=== PATIENT | male | born 2000 | race Caucasian/White ===

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

== ENCOUNTER 2018-04-21 07:17 | Day surgery (SDC) | payer OTHER ==
[2018-04-12 15:04] VITALS: BMI 20.5
[~2018-04-21 07:17] MED LIST: DEXAMETHASONE SOD PHOSPHATE 4 MG/ML 1 ML VIAL IV ONE; FAMOTIDINE 20 MG/2 ML VIAL IV ONE; HYDROmorphone 0.5 MG/0.5 ML SYRINGE IVP PRN; LACTATED RINGERS 1,000 ML IV SCH; MELOXICAM 7.5 MG TAB PO ONE; ONDANSETRON 4 MG/2 ML VIAL IVP ONE; ONDANSETRON 4 MG/2 ML VIAL IVP PRN; Pre Op ABX Message 1 EACH MISC MISCELLANE ONE; fentaNYL (PF) 50 MCG/ML 2 ML AMP IV PRN
[2018-04-21] MEDS ORDERED: LIDOCAINE 1%-EPI 1:100,000 20 ML VIAL SQ ONE ×2 (07:57→08:23)
[2018-04-21] MEDS ORDERED: BUPIVACAINE (PF) 0.5% 30 ML VIAL SQ ONE ×2 (07:57→08:23)
--- NOTE | 2018-04-21 08:02 | P.OP ---
Date of Procedure: 04/21/18 Preoperative Diagnosis: Ankyloglossia Postoperative Diagnosis: same Procedure(s) Performed: Frenuloplasty. z-plasty Anesthesia: MAC Surgeon: Mitchell Bailey Estimated Blood Loss (ml): 0 Pathology: none sent Condition: stable Disposition: PACU Indications for Procedure: Patient is having difficulty latching onto the mother's breast. Patient was noted have severe ankyloglossia and surgical correction was recommended. All risks, benefits, and alternative therapies were discussed. Consent was obtained and all questions were answered. Operative Findings: Severe ankyloglossia Description of Procedure: This patient was taken to the operative room and placed in the supine position. This patient underwent a masked inhalation anesthetic in the mouth was opened and the tongue was lifted upward. With use of a concept cautery i.e. Accu-Temp heat cautery the frenulum was resected (45 degree flaps developed and transposed) and a z-plasty was performed and closed with rapid vicryl. Excellent results were obtained. Tongue mobility was markedly improved.
[2018-04-21] MEDS ORDERED: ROCURONIUM BROMIDE 10 MG/ML 10 ML VIAL IV ONE (08:03)
[2018-04-21] MEDS ORDERED: HYDROmorphone (PF) 1 MG/ML ONE (08:03)
[2018-04-21] MEDS ORDERED: MIDAZOLAM 2 MG/2 ML VIAL ONE (08:03)
[2018-04-21] MEDS ORDERED: LIDOCAINE 1% INJ 10MG/ML (20 ML MDV) ONE (08:03)
[2018-04-21] MEDS ORDERED: fentaNYL (PF) 50 MCG/ML 2 ML AMP ONE (08:03)
[2018-04-21] MEDS ORDERED: PROPOFOL 10 MG/ML 20 ML VIAL IV ONE (08:03)
[2018-04-21 09:07] VITALS: TEMP 97.6
--- NOTE | 2018-04-21 09:08 | P.OP ---
Date of Procedure: 04/21/18 Preoperative Diagnosis: Chronic exudative tonsillitis Postoperative Diagnosis: Same Procedure(s) Performed: Modified Coblation tonsillectomy Anesthesia: GETA Surgeon: Mitchell Bailey Estimated Blood Loss (ml): 5 Pathology: other (tonsils) Condition: stable Disposition: PACU Indications for Procedure: This patient presented to the office with chronic exudative tonsillitis. He is tried different techniques to remove the stones from his tonsils. He suffers with persistent halitosis fullness to his throat and cervical lymphadenopathy. Surgical removal of his tonsils were requested by the patient. This problems been going on for many years. All risks, benefits, and alternative therapies were discussed. Consent was obtained and all questions were answered. Operative Findings: Enlarged tonsils exudative with cryptitis Description of Procedure: Prior to surgery all risks, benefits, and alternative therapies were discussed in detail. Risks of bleeding, infection, need for secondary surgery, airway problems, anesthetic complications, etc. etc. were discussed in detail. Consent was obtained and all questions were answered. OPERATIVE PROCEDURE: This patient was taken to the operative room and placed in the supine position. A functioning IV line was in placed and the patient was monitored throughout the entire case by the department of anesthesia. The patient underwent general anesthetic with intubation and tube was secured. A McIvor mouth gag was placed into the patients mouth with care to avoid any trauma to the lips, teeth, gums or tongue. Mouth was opened and tongue was depressed. The tonsils were grasped with an Allis forceps and brought medially bilaterally. A subcapsular dissection was performed utilizing an Evac-70 handpiece with an Arthrotec setting of 7. The tonsils were removed without incident bilaterally and the tonsillar fossae were inspected and bleeding was nonexistent and stopped spontaneously with Coblation. A Marcaine and lidocaine mixture was injected into the peritonsillar area for anesthesia postoperatively. The stomach was suctioned and the patient was taken to postanesthesia recovery in excellent condition having tolerated this procedure well. The patient will follow up in the office in one week as scheduled.
[2018-04-21 09:46] VITALS: RESP 18
[2018-04-21 10:47] VITALS: BP 115/75; PULSE 75
== END 2018-04-21 10:58 | disposition home or self-care (01) ==
LOC: OR 07:17
PROVIDERS: ATTEND Otolaryngology
DX: J35.01 Chronic tonsillitis (principal); R19.6 Halitosis; J45.909 Unspecified asthma, uncomplicated; Z79.51 Long term (current) use of inhaled steroids; Z79.899 Other long term (current) drug therapy
CPT/HCPCS: 88304; 42826; J2250; J2001; J3010; J1170; J2704

== ENCOUNTER → 2018-08-29 | Outpatient (CLI) | payer OTHER ==
--- NOTE | 2018-08-29 12:20 | XR ---
EXAMINATION TYPE: XR foot complete LT DATE OF EXAM: 08/29/2018 CLINICAL HISTORY: Left foot numbness with no known injury. TECHNIQUE: Frontal, lateral, and oblique images of the left foot are obtained. COMPARISON: None FINDINGS: There is no acute fracture/dislocation evident in the left foot. Small well-corticated fr agment at the base of the first distal phalanx likely relates to sequela of remote injury. Os trigonu m is incidentally seen. The joint spaces in the left foot appear within normal limits. The overlying soft tissue appears unremarkable. IMPRESSION: There is no acute fracture or dislocation in the left foot.
== END | disposition home or self-care (01) ==
LOC: RADXRMAIN 12:06
PROVIDERS: ATTEND Nurse Practitioner Family
DX: R20.2 Paresthesia of skin (principal)

== ENCOUNTER → 2019-02-10 | Outpatient (CLI) | payer OTHER ==
[2019-02-10 13:49] LABS: Basophils # (A) 0.1 k/uL (0-0.2); Basophils % (A) 1 %; Eosinophils # (A) 0.1 k/uL (0-0.7); Eosinophils % (A) 1 %; HCT 50.3 % (39.0-53.0); HGB 16.8 gm/dL (13.0-17.5); Lymphocytes # (A) 1.6 k/uL (1.0-4.8); Lymphocytes % (A) 17 %; MCH 28.7 pg (25.0-35.0); MCHC 33.3 g/dL (31.0-37.0); MCV 86.1 fL (80.0-100.0); Mean Platelet Volume 7.6; Monocytes # (A) 0.7 k/uL (0-1.0); Monocytes % (A) 7 %; Neutrophils # (A) 6.9 k/uL (1.3-7.7); Neutrophils % (A) 72 %; Platelet Count 150 k/uL (150-450); RBC 5.84 m/uL (4.30-5.90); RDW 13.1 % (11.5-15.5); WBC 9.5 k/uL (4.0-11.0)
[2019-02-10 19:50] LABS: Albumin 5.2 g/dL (3.80-4.90); Albumin/Globulin Ratio 2.6 (1.60-3.17); Anion Gap 6.7 mmol/L (4.00-12.00); Calcium 10.2 mg/dL (8.7-10.3); Carbon Dioxide 28.3 mmol/L (21.6-31.8); LDL Cholesterol,Calculated 63.4 mg/dL (0.0-131.0); Potassium 4.4 mmol/L (3.5-5.5); Total Bilirubin 1.6 mg/dL (0.3-1.2); Total Protein 7.2 g/dL (6.2-8.2); VLDL Calculation 16.6 mg/dL (5.00-40.00)
[2019-02-10 19:54] LABS: T4, Free (Free Thyroxine) 1.7 ng/dL (0.83-1.43)
== END ==
LOC: LABWHC1 11:39
PROVIDERS: ATTEND Internal Medicine
DX: Z00.00 Encounter for general adult medical examination without abnormal findings (principal); R61 Generalized hyperhidrosis
CPT/HCPCS: 36415; 80053; 80061; 84439; 84443; 85025